=== PATIENT | male | born 1945 | race African-American/Black ===

== ENCOUNTER 2017-05-17 03:43 | Emergency (ER) | payer MEDICARE ==
[~2017-05-17] VITALS: Ht 188 cm; Wt 74.8 kg
[~2017-05-17 03:43] MED LIST: DICL100T2 PO; DILT240C PO; LOVA20TA2 PO; OMEP20TA8 PO; OXYC1TAB7 PO; POTA20TA82 PO; TRAM50TA PO; WARF3TAB7 PO
[2017-05-17 05:00] VITALS: BP 141/73
[2017-05-17] MEDS ORDERED: MAGNESIUM CITRATE 296 ML SOLUTION. PO ONE (05:00)
--- NOTE | 2017-05-17 05:05 | ED.ADGEN ---
Past Medical History Past Medical History: GERD, Hypertension Past Surgical History: Knee Replacement Additional Past Surgical Histo: BILAT KNEE Alcohol Use: None Drug Use: None Adult General Chief Complaint Chief Complaint: CONSTIPATION HPI HPI Patient is a 72 year old [place] male presents with constipation and feeling just have bowel movement. Patient had a colonoscopy 4 days agoand has not had a bowel movement since that time. Denies chest pain shortness breath, abdominal tenderness, flank pain,diarrhea. Urinary frequency urgency.is taking MiraLAX with no improvement of his symptoms. Review of Systems Review of Systems ROS as per HPI. Current Medications Current Medications Current Medications Medications (Trade) Dose Ordered Sig/Faraz Start Time Stop Time Status Last Admin Dose Admin Magnesium Citrate (Citroma) 296 ml 1X ONCE 05/17/17 05:00 05/17/17 05:01 DC 05/17/17 05:01 296 ML Allergies Allergies Allergies Coded Allergies Type Severity Reaction Last Updated Verified No Known Drug Allergies 04/09/14 No Physical Exam Physical Exam Constitutional: Well developed, well nourished, no acute distress, non-toxic appearance. [] HENT: Normocephalic, atraumatic, bilateral external ears normal, oropharynx moist, no oral exudates, nose normal. [] Eyes: PERRLA, EOMI, conjunctiva normal, no discharge. [] Neck: Normal range of motion, no tenderness, supple, no stridor. [] Cardiovascular:Heart rate regular rhythm, no murmur [] Lungs & Thorax: Bilateral breath sounds clear to auscultation [] Abdomen: Bowel sounds normal, soft, no tenderness, distention, normal bowel sounds, no pulsatile masses. [] Skin: Warm, dry, no erythema, no rash. [] Back: No tenderness, no CVA tenderness. [] Extremities: No tenderness, no cyanosis, no clubbing, ROM intact, no edema. [] Neurologic: Alert and oriented X 3, normal motor function, normal sensory function, no focal deficits noted. [] Psychologic: Affect normal, judgement normal, mood normal. [] Current Patient Data Vital Signs Vital Signs Date Time Temp Pulse Resp B/P (MAP) Pulse Ox O2 Delivery O2 Flow Rate FiO2 05/17/17 03:55 98.4 90 20 104/81 (89) 98 Room Air 98.4 EKG EKG [] Radiology/Procedures Radiology/Procedures [Acute abdominal series: No acute air-fluid levels.] Course & Med Decision Making Course & Med Decision Making Pertinent Labs and Imaging studies reviewed. (See chart for details) [Abdomen is soft, nontender. Recommend supportive care with PCP follow-up as needed. Return precautions reviewed] Dragon Disclaimer Dragon Disclaimer This electronic medical record was generated, in whole or in part, using a voice recognition dictation system. SCOTT ANGEELS DO May 17, 2017 05:05
--- NOTE | 2017-05-17 07:51 | RAD ---
Two-view abdominal series and portable AP upright chest x-ray History: Abdominal pain that started tonight. Findings: No obstructive bowel pattern is seen. No air-fluid levels or free intraperitoneal air is seen. Cholecystectomy clips are seen. Vascular calcifications are evident. Degenerative lumbar spondylosis is seen. There is a diffuse increase in density of the lumbar spine since the prior study on March 14, 2012. There has been progressive degenerative disc space narrowing at L2-3 and L4-5 and to a lesser extent L3-4. Therefore, this may be degenerative in nature. Scoliosis is evident. Chest x-ray demonstrates no acute lung infiltrate or pleural effusion or pulmonary edema or pneumothorax. The heart size and pulmonary vasculature and mediastinum and both kennedy are unremarkable. IMPRESSION: No acute radiographic abnormality. Increase in sclerosis of the lumbar spine which is secondary to progressive degenerative spondylosis of the lumbar spine.
== END 2017-05-17 05:04 | disposition home or self-care (01) ==
LOC: ER 03:43
DX: K59.00 Constipation, unspecified (principal); R35.0 Frequency of micturition; R39.15 Urgency of urination; I10 Essential (primary) hypertension; K21.9 Gastro-esophageal reflux disease without esophagitis
CPT/HCPCS: 74022; 99284

== ENCOUNTER 2018-12-01 07:47 | Emergency (ER) | payer MEDICARE ==
[~2018-12-01] VITALS: Ht 180.3 cm; Wt 82.6 kg
[~2018-12-01 07:47] MED LIST changes: -DICL100T2 PO; +DICL100T68 PO; +WARF3TAB50 PO; -WARF3TAB7 PO
--- NOTE | 2018-12-01 08:19 | PHYS DOC ---
Past Medical History Past Medical History: GERD, Hypertension Additional Past Medical Histor: chronic pain Past Surgical History: Knee Replacement Additional Past Surgical Histo: BILAT KNEE Alcohol Use: None Drug Use: None Adult General Chief Complaint Chief Complaint: LOWER EXT PAIN HPI HPI Patient is a 73 year old male with history of hypertension, acid reflex, who presents to the ED today complaining of what he describes as "mild" left hip pain radiating to the left thigh that has been going on and off since yesterday. Patient states the pain is worse on weight-bearing. Patient denies any trauma. Denies any numbness or tingling to bilateral lower extremities. Denies any low back pain. He states he has had history of hip pain before. He states he tried taking his diclofenac and tramadol with some relief. Patient also states he has had bilateral knee replacements and believes his left lower extremity is shorter than the right lower extremity. He walks with a cane. Review of Systems Review of Systems Constitutional: Denies fever or chills [] GI: Denies abdominal pain, nausea, vomiting, bloody stools or diarrhea [] : Denies dysuria or hematuria [] Musculoskeletal: Reports left hip pain. Integument: Denies rash or skin lesions [] Neurologic: Denies headache, focal weakness or sensory changes [] All other systems were reviewed and found to be within normal limits, except as documented in this note. Allergies Allergies Allergies Coded Allergies Type Severity Reaction Last Updated Verified No Known Drug Allergies 04/09/14 No Physical Exam Physical Exam Constitutional: Well developed, well nourished, no acute distress, non-toxic appearance. [] Skin: Warm, dry, no erythema, no rash. [] Back: No tenderness, no CVA tenderness. [] Extremities: Bilateral lower extremities with no obvious deformities, bilateral anterior knees with old healed surgical incisions consistent with bilateral knee replacements. Tenderness on palpation of the lateral proximal thigh. Full active as well as passive range of motion to the left lower extremity. +2 left pedal pulse. Cap refill less than 2 seconds left toes. Sensation intact to the left lower extremity. Neurologic: Alert and oriented X 3, normal motor function, normal sensory function, no focal deficits noted. [] Psychologic: Affect normal, judgement normal, mood normal. [] Current Patient Data Vital Signs Vital Signs Date Time Temp Pulse Resp B/P (MAP) Pulse Ox O2 Delivery O2 Flow Rate FiO2 12/01/18 08:01 97.9 88 16 140/64 (89) 97 Room Air 97.9 EKG EKG [] Radiology/Procedures Radiology/Procedures []PROCEDURE: HIP LEFT 2V WITH PELVIS EXAM: Pelvis and left hip, 3 views. HISTORY: Pain. COMPARISON: None. FINDINGS: A frontal view the pelvis and frontal and frog-leg views of the left hip are obtained. There is no fracture, dislocation or subluxation. There is minimal suspected degenerative subchondral sclerosis at the superior left femoral head-neck junction. There is no decreased femoral head-neck offset to suggest impingement. There are advanced degenerative changes involving the lower lumbar spine. IMPRESSION: 1. No acute osseous finding. 2. Advanced degenerative changes involving the lower lumbar spine. Electronically signed by: Bonny Byers MD (12/01/2018 8:52 AM) [id number] DICTATED and SIGNED BY: BONNY BYERS MD DATE: 12/01/18 4038 Course & Med Decision Making Course & Med Decision Making Pertinent Labs and Imaging studies reviewed. (See chart for details) This is a 73-year-old male patient presented to the ED today with left hip pain , no known injury. Left hip x-rays including pelvis interpreted by radiologist were negative for any acute findings, noted for advanced DJD of the lumbar spine. Patient was discharged with Lidoderm patches. He states he has an appointment with his own doctor on this week. He is already on tramadol and diclofenac. Ice and elevation encouraged. Dragon Disclaimer Dragon Disclaimer This electronic medical record was generated, in whole or in part, using a voice recognition dictation system. 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 You were noted to have arthritis in the lumbar spine. Continue taking your pain medicine at home as previously prescribed by your doctor. Ice and elevate the affected area. Use the Lidoderm patches as prescribed. Follow-up with your doctor on as scheduled. Problem Qualifiers Additional Impression: Degenerative joint disease (DJD) of lumbar spine Spinal osteoarthritis complication: unspecified spinal osteoarthritis Qualified Codes: M47.816 - Spondylosis without myelopathy or radiculopathy, lumbar region DIANA EDMONDSON APRN Dec 01, 2018 08:19
--- NOTE | 2018-12-01 08:55 | RAD ---
EXAM: Pelvis and left hip, 3 views. HISTORY: Pain. COMPARISON: None. FINDINGS: A frontal view the pelvis and frontal and frog-leg views of the left hip are obtained. There is no fracture, dislocation or subluxation. There is minimal suspected degenerative subchondral sclerosis at the superior left femoral head-neck junction. There is no decreased femoral head-neck offset to suggest impingement. There are advanced degenerative changes involving the lower lumbar spine. IMPRESSION: 1. No acute osseous finding. 2. Advanced degenerative changes involving the lower lumbar spine. Electronically signed by: Bonny Byers MD (12/01/2018 8:52 AM) [email or web address]
[2018-12-01] MEDS: LIDOCAINE (700MG/PATCH) PATCH. TD ONE (09:33)
[2018-12-01 09:35] VITALS: BP 132/61
== END 2018-12-01 09:45 | disposition home or self-care (01) ==
LOC: ER 07:47
DX: M47.816 Spondylosis without myelopathy or radiculopathy, lumbar region (principal); M25.552 Pain in left hip; Z96.653 Presence of artificial knee joint, bilateral; I10 Essential (primary) hypertension; K21.9 Gastro-esophageal reflux disease without esophagitis; G89.29 Other chronic pain
CPT/HCPCS: 73502; 99283

== ENCOUNTER 2018-12-07 09:59 | Emergency (ER) | payer MEDICARE ==
[~2018-12-07] VITALS: Ht 180.3 cm; Wt 82.6 kg
[2018-12-07 10:00] VITALS: BP 154/62
--- NOTE | 2018-12-07 10:30 | PHYS DOC ---
Past Medical History Past Medical History: GERD, Hypertension Additional Past Medical Histor: chronic pain Past Surgical History: Knee Replacement Additional Past Surgical Histo: BILAT KNEE Alcohol Use: None Drug Use: None Adult General Chief Complaint Chief Complaint: HIP PAIN HPI HPI Patient is a 73 year old male who complains of left hip and knee pain. This started approximately a week ago. No trauma. Patient was evaluated in the emergency department and had negative x-rays obtained of his hip. He followed up with his primary care physician 4 days ago who evaluated him and prescribed new pain medicine which the patient reports is doing nothing at all. Patient felt a pop in his left knee last night and has continued pain from this. Patient has a history of bilateral total knee arthroplasty. Pain is moderate to severe. Patient is getting no relief with his home tramadol as well as recent prescription of NSAIDs. Pain is sharp, worse with sitting and moving. No weakness, numbness, tingling, paresthesias. No fever.[] Review of Systems Review of Systems Constitutional: Denies fever or chills [] Eyes: Denies change in visual acuity, redness, or eye pain [] HENT: Denies nasal congestion or sore throat [] Respiratory: Denies cough or shortness of breath [] Cardiovascular: No chest pain or palpitations[] GI: Denies abdominal pain, nausea, vomiting, bloody stools or diarrhea [] : Denies dysuria or hematuria [] Musculoskeletal: See history of present illness[] Integument: Denies rash or skin lesions [] Neurologic: Denies headache, focal weakness or sensory changes [] Endocrine: Denies polyuria or polydipsia [] All other systems were reviewed and found to be within normal limits, except as documented in this note. Current Medications Current Medications Current Medications Medications (Trade) Dose Ordered Sig/Faraz Start Time Stop Time Status Last Admin Dose Admin Acetaminophen/ Hydrocodone Bitart (Lortab 5/325) 1 tab 1X ONCE 12/07/18 10:45 12/07/18 10:46 DC 12/07/18 10:45 1 TAB Allergies Allergies Allergies Coded Allergies Type Severity Reaction Last Updated Verified No Known Drug Allergies 04/09/14 No Physical Exam Physical Exam Constitutional: Well developed, well nourished, no acute distress, non-toxic appearance. [] HENT: Normocephalic, atraumatic, bilateral external ears normal, oropharynx moist, no oral exudates, nose normal. [] Eyes: PERRLA, EOMI, conjunctiva normal, no discharge. [] Neck: Normal range of motion, no tenderness, supple, no stridor. [] Cardiovascular:Heart rate regular rhythm, no murmur [] Lungs & Thorax: Bilateral breath sounds clear to auscultation [] Abdomen: Bowel sounds normal, soft, no tenderness, no masses, no pulsatile masses. [] Skin: Warm, dry, no erythema, no rash. [] Back: No tenderness, no CVA tenderness. [] Extremities: Tenderness in the left hip region with full active range of motion. No pain with axial loading. Tenderness lateral portion of the left knee , there is some laxity when compared with the right. Scars from surgical total knee arthroplasty are well-healed. No varus or valgus laxity. Patient is distal neurovascularly intact. No cyanosis, no clubbing, ROM intact, no edema. [] Neurologic: Alert and oriented X 3, normal motor function, normal sensory function, no focal deficits noted. [] Psychologic: Affect normal, judgement normal, mood normal. [] Current Patient Data Vital Signs Vital Signs Date Time Temp Pulse Resp B/P (MAP) Pulse Ox O2 Delivery O2 Flow Rate FiO2 12/07/18 10:45 16 99 Room Air 12/07/18 10:00 98.5 77 154/62 (92) 98.5 EKG EKG [] Radiology/Procedures Radiology/Procedures KNEE LEFT 3V History: LATERAL ASPECT PAIN, FELT A POP, HYSTERY OF TKA. Comparison: None are available There has been a total left knee arthroplasty. No evidence of acute fracture. No aggressive bone destruction or osteolysis. No significant soft tissue abnormality. IMPRESSION: No evidence of acute fracture or dislocation. Electronically signed by: Mark Amador MD (12/07/2018 10:43 AM) [email or web address] CT PELVIS WO CONTRAST Indication: LEFT HIP PAIN X 1 WEEK. NO INJURY KNOWN
PREVIOUS Exposure: One or more of the following individualized dose reduction techniques were utilized for this examination: 1. Automated exposure control 2. Adjustment of the mA and/or kV according to patient size 3. Use of iterative reconstruction technique. Comparison: None TECHNIQUE: Standard noncontrast images obtained. FINDINGS: No evidence of an acute fracture or aggressive bone destruction. Severe degenerative disc and facet joint changes at the partially seen lower spine with moderate to severe stenosis at L4-L5, and minimal retrolisthesis of L4 on L5. Degenerative changes also seen at the sacroiliac joints, greater on the left. Mild degenerative changes of both hips. No evidence of acute fracture or aggressive bone destruction. Soft tissue evaluation is limited by the technique. Dense atherosclerotic calcification of the visualized aorta and iliac vessels. Urinary bladder demonstrates mild posterior wall thickening. The prostate gland measures 4.5 cm wide. No evidence of free fluid. The visualized bowel loops are not distended. Mild retained stool in the visualized colon. The appendix appears normal. IMPRESSION: 1. No acute findings at the left hip. Consider MR as a more sensitive means of evaluation, particularly if symptoms do not improve. 2. No severe degenerative changes and stenosis of the lower spine. Electronically signed by: Mark Amador MD (12/07/2018 11:27 AM) [email or web address] [] Course & Med Decision Making Course & Med Decision Making Pertinent Labs and Imaging studies reviewed. (See chart for details) ED course: Patient arrived, was placed in bed, tolerated exam well. Patient was able to ambulate about the emergency department utilizing the cane he already has, albeit with some pain. Discussed the findings with the patient who voiced understanding. All questions were answered. Medical decision making: There is no evidence of an acute fracture or dislocation. This seems to be more of a long-standing issue. There is no evidence of cauda equina nor neuro or vascular compromise[] Dragon Disclaimer Dragon Disclaimer This electronic medical record was generated, in whole or in part, using a voice recognition dictation system. Departure Departure Impression: Primary Impression: Left hip pain Additional Impression: Left knee pain Disposition: HOME, SELF-CARE Condition: IMPROVED Referrals: LORA SEAMAN MD (PCP) Follow-up in 2 days Patient Instructions: Hip Pain, Knee Pain Additional Instructions: Follow-up with your regular doctor within 2 days. Stop the tramadol and take the [place] as prescribed until it is finished and then restart the tramadol. Stop the diclofenac and start the meloxicam as prescribed. Return to the ER if worsening pain, loss of bowel or bladder control, or any other concerns. Scripts Hydrocodone/Apap 5-325 (NORCO 5-325 TABLET) 1 Each Tablet 1 EACH PO PRN Q6HRS PRN for severe pain, #20 as needed for pain Prov: WILLIS GARZA DO 12/07/18 Meloxicam (MELOXICAM) 7.5 Mg Tablet 7.5 MG PO DAILY, #20 TAB Prov: WILLIS GARZA DO 12/07/18 Problem Qualifiers Additional Impression: Left knee pain Chronicity: unspecified Qualified Codes: M25.562 - Pain in left knee WILLIS GARZA DO Dec 07, 2018 10:30
[2018-12-07] MEDS ORDERED: HYDROcodone/APAP 5/325MG 1 TAB TABLET PO ONE (10:45)
--- NOTE | 2018-12-07 10:46 | RAD ---
KNEE LEFT 3V History: LATERAL ASPECT PAIN, FELT A POP, HYSTERY OF TKA. Comparison: None are available There has been a total left knee arthroplasty. No evidence of acute fracture. No aggressive bone destruction or osteolysis. No significant soft tissue abnormality. IMPRESSION: No evidence of acute fracture or dislocation. Electronically signed by: Mark Amador MD (12/07/2018 10:43 AM) [email or web address]
--- NOTE | 2018-12-07 11:30 | RAD ---
CT PELVIS WO CONTRAST Indication: LEFT HIP PAIN X 1 WEEK. NO INJURY KNOWN
PREVIOUS Exposure: One or more of the following individualized dose reduction techniques were utilized for this examination: 1. Automated exposure control 2. Adjustment of the mA and/or kV according to patient size 3. Use of iterative reconstruction technique. Comparison: None TECHNIQUE: Standard noncontrast images obtained. FINDINGS: No evidence of an acute fracture or aggressive bone destruction. Severe degenerative disc and facet joint changes at the partially seen lower spine with moderate to severe stenosis at L4-L5, and minimal retrolisthesis of L4 on L5. Degenerative changes also seen at the sacroiliac joints, greater on the left. Mild degenerative changes of both hips. No evidence of acute fracture or aggressive bone destruction. Soft tissue evaluation is limited by the technique. Dense atherosclerotic calcification of the visualized aorta and iliac vessels. Urinary bladder demonstrates mild posterior wall thickening. The prostate gland measures 4.5 cm wide. No evidence of free fluid. The visualized bowel loops are not distended. Mild retained stool in the visualized colon. The appendix appears normal. IMPRESSION: 1. No acute findings at the left hip. Consider MR as a more sensitive means of evaluation, particularly if symptoms do not improve. 2. No severe degenerative changes and stenosis of the lower spine. Electronically signed by: Mark Amador MD (12/07/2018 11:27 AM) [email or web address]
[2018-12-07] MEDS ORDERED: MELO7.5T29 PO (11:49)
[2018-12-07] MEDS ORDERED: HYDR-3164 PO (11:50)
== END 2018-12-07 12:02 | disposition home or self-care (01) ==
LOC: ER 09:59
DX: M25.562 Pain in left knee (principal); M25.552 Pain in left hip; K21.9 Gastro-esophageal reflux disease without esophagitis; I10 Essential (primary) hypertension; G89.29 Other chronic pain; Z96.653 Presence of artificial knee joint, bilateral; X50.9XXA Other and unspecified overexertion or strenuous movements or postures, initial encounter; Y93.89 Activity, other specified; Y92.89 Other specified places as the place of occurrence of the external cause; Y99.8 Other external cause status
CPT/HCPCS: 72192; 73562; 99284-25

== ENCOUNTER → 2021-10-02 | Outpatient (CLI) | payer MEDICARE ==
[~2021-10-02] MED LIST changes: +HYDR-3164 PO; +MELO7.5T29 PO; +POTA20TA4 PO; -POTA20TA82 PO
--- NOTE | 2021-10-02 17:37 | CARD ---
MR#: [id number] Date of Study: 10/02/2021 Ordering Physician: STAFF AILYN, Referring Physician: STAFF ROBERTSON, Tech: Megan Pretty RDCS APPROVED REPORT EXAM: Two-dimensional and M-mode echocardiogram with Doppler and color Doppler. Other Information Quality : AverageHR: 80bpm Rhythm : NSR INDICATION Hypertension/HCVD RISK FACTORS Hypertension 2D DIMENSIONS RVDd2.5 (2.9-3.5cm)Left Atrium(2D)2.9 (1.6-4.0cm) IVSd1.2 (0.7-1.1cm)Aortic Root(2D)3.1 (2.0-3.7cm) LVDd3.5 (3.9-5.9cm)LVOT Diameter2.1 (1.8-2.4cm) PWd1.2 (0.7-1.1cm)RVOT Diameter2.0 cm LVDs2.8 (2.5-4.0cm)FS (%) 18.8 % SV20.1 mlLVEF(%)39.7 (>50%) Aortic Valve AoV Peak Ruben.161.9cm/sAoV VTI27.3cm AO Peak GR.10.5mmHgLVOT Peak Ruben.150.7cm/s AO Mean GR.4mmHgAVA (VMAX)3.23cm2 AI P 1/2 Gift705ms Mitral Valve MV E Ekdyixqq96.0cm/sMV DECEL NEUW082qp MV A Kzaxukoh976.1cm/sE/A Ratio0.7 Pulmonary Valve PV Peak Ocnencle556.5cm/s LEFT VENTRICLE The left ventricle is normal size. There is mild concentric left ventricular hypertrophy. The left ve ntricular systolic function is normal. Estimated ejection fraction 65%. There is normal LV segmental wall motion. Transmitral Doppler flow pattern is Grade I-abnormal relaxation pattern. RIGHT VENTRICLE The right ventricle is normal size. There is normal right ventricular wall thickness. The right ventr icular systolic function is normal. ATRIA The left atrium size is normal. The right atrium size is normal. The interatrial septum is intact wit h no evidence for an atrial septal defect or patent foramen ovale as noted on 2-D or Doppler imaging. AORTIC VALVE The aortic valve is normal in structure and function. Doppler and Color Flow revealed moderate aortic regurgitation. There is no significant aortic valvular stenosis. MITRAL VALVE The mitral valve is normal in structure and function. There is no evidence of mitral valve prolapse. There is no mitral valve stenosis. Doppler and Color Flow revealed no mitral valve regurgitation note d. TRICUSPID VALVE The tricuspid valve is normal in structure and function. Doppler and Color Flow revealed no tricuspid valve regurgitation noted. There is no tricuspid valve stenosis. PULMONIC VALVE The pulmonary valve is normal in structure and function. Doppler and Color Flow revealed no pulmonic valvular regurgitation. GREAT VESSELS The aortic root is normal in size. The ascending aorta is normal in size. The IVC is normal in size a nd collapses >50% with inspiration. PERICARDIAL EFFUSION There is no evidence of significant pericardial effusion. Critical Notification Critical Value: No <Conclusion> The left ventricular systolic function is normal. Estimated ejection fraction 65%. There is normal LV segmental wall motion. Transmitral Doppler flow pattern is Grade I-abnormal relaxation pattern. Moderate aortic regurgitation. There is no evidence of significant pericardial effusion. Signed by : Kj Ford, Electronically Approved : 10/02/2021 17:37:41
== END ==
LOC: ECHO 07:29
PROVIDERS: ATTEND Internal Medicine
DX: I35.1 Nonrheumatic aortic (valve) insufficiency (principal); I11.9 Hypertensive heart disease without heart failure
CPT/HCPCS: 93306

== ENCOUNTER → 2021-10-23 | Outpatient (CLI) | payer MEDICARE ==
[~2021-10-23] MED LIST changes: +REGADENOSON 0.4 MG/5 ML DISP.SYRIN. IV ONE
--- NOTE | 2021-10-23 17:06 | RAD ---
MR#: [id number] Date of Study: 10/23/2021 Ordering Physician: STAFF ROBERTSON, Referring Physician: STAFF ROBERTSON, JIMY Tech: OLYA Carbajal, AIMEE (R) (N) APPROVED REPORT Test Type: Pharmacological Stress Nurse/Tech: Maribeth Conde R.N. Test Indications: CP Cardiac History: htn Medications: see ehr Medical History: see ehr Resting ECG: sr Resting Heart Rate: 85 bpm Resting Blood Pressure: 173/59mmHg Pretest Chest Pain: No chest pain Nurse/Tech Notes lungs cta, heart tones regular Consent: The procedure was explained to the patient in lay terms. Informed consent was witnessed. Vladimir eout was entered into [employer]. History and Stress Test performed by RT Sly Rodney) (N) Pharm. Details Pharmacologic stress testing was performed using 0.4mg per 5ml of regadenoson given intravenously ove r 7-10 seconds. Stress Symptoms No chest pain or symptoms. POST EXERCISE Reason for Termination: Infusion complete Target HR: No Max HR: 96 bpm Max Blood Pressure: 176/54mmHg Chest Pain: No. Arrhythmia: No. ST Change: No. INTERPRETATION Stress EKG Conclusion: Baseline EKG showed sinus rhythm. No ischemic changes at peak stress. No arr hythmias. Imaging Protocol IMAGE PROTOCOL: Rest Tc-99m/stress Tc-99m 1 day Rest: Stress: Viability: Radiopharm.Tc99m KwzotudiySv10i Sestamibi Grvo08cCp 31mCi Img Date 10/23/2021 10/23/2021 Inj-Img [id number]. 45min. Rest Admin Site:IV - Left AntecubitalAdministrator:RT Rashaun (R)(N) Stress Admin Site: IV - Left AntecubitalAdministrator: RT Rashaun (Shante)(N) STRESS DATA End Diast. Vol.92.0mlAv. Heart Rate96.0bpm End Syst. Vol.27.0mlCO Index BSA6.2L/min Myocardial Wlwe556.0gEject. Kewxsgbw60.0% Stress Rates Pk. Fill Rate4.14EDV/secLVtime Pk. Fill 171.20msec Pk. Empty Rate5.36ESV/secLVtime Pk. Igrew583.87msec /3 Pk. Fill1.25EDV/sec Stress Scores Regional WT2.00Summed WT11.00 Regional WM0.00Summed WM1.00 Study quality was good. Left Ventricular size was Normal at Rest and Stress. Lung uptake was . Left Ventricular ejection fraction is 64%. The rest and stress images show normal perfusion, normal contraction and thickening. LV Perf. Quant 17 Seg. SSS0.00 17 Seg. SRS2.00 17 Seg. SDS0.00 Stress Defect Extent (% LAD)0.00Rest Defect Extent (% LAD)0.00Rev. Defect Extent (% LAD)0.00 Stress Defect Extent (% LCX) 0.00Rest Defect Extent (% LCX)0.00Rev. Defect Extent (% LCX)0.00 Stress Defect Extent (% RCA)0.00Rest Defect Extent (% RCA)0.00Rev. Defect Extent (% RCA)0.00 Stress Defect Extent (% HERRERA)0.00Rest Defect Extent (% HERRERA)0.00Rev. Defect Extent (% HERRERA)0.00 Conclusion 1. Regadenoson cardioisotope stress test did not show any evidence of ischemia or infarct. 2. Normal left ventricular systolic function with ejection fraction calculated at 64%. 3. Low risk for cardiac events. Signed by : Kj Ford, Electronically Approved : 10/23/2021 17:05:53
== END ==
LOC: NM 15:27
PROVIDERS: ATTEND Surgery
DX: I10 Essential (primary) hypertension (principal)
CPT/HCPCS: 78452; 93017; A9500; J2785